=== PATIENT | female | born 1940 | race Caucasian/White ===

== ENCOUNTER 2020-07-05 12:23 | Inpatient (IN) ==
[2020-07-07] MEDS ORDERED: *HR* Glimepiride 4 MG TABLET PO PRN (21:23)
[2020-07-07] MEDS ORDERED: D5% in Water 1,000 ML IVC PRN (21:34)
[2020-07-07] MEDS ORDERED: Dextrose Gel 15 GM/37.5 ML TUBE PO PRN ×2 (21:34)
[2020-07-07] MEDS ORDERED: *HR* Dextrose 50 % in Water (Vial) 50 ML VIAL IVP PRN (21:34)
[2020-07-07] MEDS: Magnesium Oxide 400 MG TABLET PO SCH (23:16)
[2020-07-07] MEDS: Sucralfate 1 GM TABLET PO SCH (23:16)
[2020-07-07] MEDS: QUEtiapine Fumarate 25 MG TABLET PO SCH (23:16)
[2020-07-07] MEDS: Gabapentin 300 MG CAPSULE PO SCH (23:17)
[2020-07-08 05:14] LABS: Basophils # 0.1 K/mcL (0.0-0.2); Basophils % 0.8 %; Eosinophils # 0.2 K/mcL (0.0-0.6); Eosinophils % 2.4 %; Hematocrit 24.3 % (35.3-44.9); Hemoglobin 7.5 g/dL (11.5-15.4); Immature Granulocytes % 0.3 % (0-4); Lymphocytes # 2.2 K/mcL (0.6-4.6); Lymphocytes % 33.4 %; Mean Corpuscular HGB Conc 30.9 g/dL (31.6-35.5); Mean Corpuscular Hemoglobin 28.7 pg (28.0-33.3); Mean Corpuscular Volume 93.1 fL (83.0-100.0); Mean Platelet Volume 10.8 fL (9.4-12.4); Monocytes # 0.8 K/mcL (0.0-1.3); Monocytes % 11.7 %; Neutrophils # 3.4 K/mcL (1.6-8.9); Platelet Count 274 K/mcL (140-400); Red Blood Count 2.61 M/mcL (3.82-4.97); Red Cell Distribution Width 20.8 % (11.5-14.5); Segmented Neutrophils % 51.4 %; White Blood Count 6.6 K/mcL (4.3-11.1)
[2020-07-08] MEDS: Sucralfate 1 GM TABLET PO SCH ×4 (05:50→20:39)
[2020-07-08 05:57] LABS: Alanine Aminotransferase 18 Units/L (7-52); Albumin 2.2 g/dL (3.5-5.7); Albumin/Globulin Ratio 0.8 (1.1-2.2); Alkaline Phosphatase 78 Units/L (34-104); Aspartate Amino Transferase 19 Units/L (13-39); BUN/Creatinine Ratio 15 (6-26); Bilirubin,Total 0.5 mg/dL (0.3-1.0); Blood Urea Nitrogen 10 mg/dL (8-23); Calcium 7.9 mg/dL (8.6-10.3); Carbon Dioxide 40 mEq/L (23-29); Chloride 95 mEq/L (98-107); Globulin 2.6 g/dL (2.4-3.5); Glucose 151 mg/dL (70-105); Osmolality,Calculated 292 (280-300); Potassium 3.1 mEq/L (3.5-5.1); Sodium 140 mEq/L (136-145); Total Protein 4.8 g/dL (6.4-8.9); eGFR For African Americans > 60 (> 60); eGFR For Non-African Americans > 60 (> 60)
[2020-07-08] MEDS: *HR* Pioglitazone 30 MG TABLET PO SCH (08:35)
[2020-07-08] MEDS: Aspirin Enteric Coated 81 MG Tablet PO SCH (08:35)
[2020-07-08] MEDS: Furosemide 40 MG TABLET PO SCH ×2 (08:35→16:15)
[2020-07-08] MEDS: Ascorbic Acid 500 MG TABLET PO SCH (08:36)
[2020-07-08] MEDS: *HR* SitaGLIPtin 100 MG TABLET PO SCH (08:37)
[2020-07-08] MEDS: Cyanocobalamin (B-12) 1,000 MCG TABLET PO SCH (08:37)
[2020-07-08] MEDS: Metoprolol XL (24 HR) Succ 50 MG TAB.ER.24H PO SCH (08:38)
[2020-07-08] MEDS: Loratadine 10 MG TABLET PO SCH (08:38)
[2020-07-08] MEDS: Magnesium Oxide 400 MG TABLET PO SCH ×2 (08:38→20:39)
[2020-07-08] MEDS: Pyridoxine (B-6) 50 MG TABLET PO SCH (08:38)
[2020-07-08] MEDS: Insulin LISPRO 300 UNITS/3 ML VIAL SUBQ SCH ×4 (08:39→20:40)
[2020-07-08] MEDS: Gabapentin 300 MG CAPSULE PO SCH ×3 (08:47→20:39)
[2020-07-08] MEDS: CRANBERRY PO SCH (11:43)
[2020-07-08] MEDS: [UNRECOGNIZED DRUG - OTHER] PO SCH (11:43)
[2020-07-08] MEDS: ASCORBIC ACID PO SCH (11:43)
[2020-07-08] MEDS: (Ubidecarenone [Co Q-10] 200 MG) PO SCH (11:44)
[2020-07-08 18:21] LABS: Bilirubin,Urine Negative (Negative); Blood,Urine Trace-intact (Negative); Clarity,Urine Slightly Cloudy (Clear); Glucose,Urine (UA) Normal (Normal); Ketones,Urine Negative (Negative); Leukocyte Esterase,Urine Trace (Negative); Nitrite,Urine Negative (Negative); Protein,Urine Negative (Neg-Trace); Urobilinogen,Urine Normal (Normal)
[2020-07-08 18:22] LABS: Color,Urine Yellow (Yellow)
[2020-07-08 18:23] LABS: Amorphous Sediment,Urine Few per hpf (None-Few); Bacteria,Urine Few per hpf (None-Few); RBC,Urine 0-3 per hpf (0-3)
[2020-07-08] MEDS: QUEtiapine Fumarate 25 MG TABLET PO SCH (20:39)
[2020-07-08] MEDS: acetaZOLAMIDE 250 MG TABLET PO SCH (20:39)
[2020-07-09] MEDS: Sucralfate 1 GM TABLET PO SCH ×4 (04:55→20:19)
[2020-07-09] MEDS: *HR* Enoxaparin 40 MG/0.4 ML SYRINGE SQ SCH (04:55)
[2020-07-09 05:23] LABS: Hematocrit 25.6 % (35.3-44.9); Hemoglobin 7.9 g/dL (11.5-15.4); Mean Corpuscular HGB Conc 30.9 g/dL (31.6-35.5); Mean Corpuscular Hemoglobin 29.4 pg (28.0-33.3); Mean Corpuscular Volume 95.2 fL (83.0-100.0); Mean Platelet Volume 10.7 fL (9.4-12.4); Platelet Count 273 K/mcL (140-400); Red Blood Count 2.69 M/mcL (3.82-4.97); Red Cell Distribution Width 20.7 % (11.5-14.5); White Blood Count 6.3 K/mcL (4.3-11.1)
[2020-07-09 05:38] LABS: BUN/Creatinine Ratio 12 (6-26); Blood Urea Nitrogen 9 mg/dL (8-23); Calcium 8.2 mg/dL (8.6-10.3); Carbon Dioxide 39 mEq/L (23-29); Chloride 96 mEq/L (98-107); Glucose 104 mg/dL (70-105); Magnesium 1.6 mg/dL (1.6-2.6); Osmolality,Calculated 287 (280-300); Potassium 3.4 mEq/L (3.5-5.1); Sodium 139 mEq/L (136-145); eGFR For African Americans > 60 (> 60); eGFR For Non-African Americans > 60 (> 60)
[2020-07-09] MEDS: Insulin LISPRO 300 UNITS/3 ML VIAL SUBQ SCH ×4 (07:58→20:21)
[2020-07-09] MEDS: *HR* SitaGLIPtin 100 MG TABLET PO SCH (08:10)
[2020-07-09] MEDS: Ascorbic Acid 500 MG TABLET PO SCH (08:33)
[2020-07-09] MEDS: Aspirin Enteric Coated 81 MG Tablet PO SCH (08:33)
[2020-07-09] MEDS: Metoprolol XL (24 HR) Succ 50 MG TAB.ER.24H PO SCH (08:34)
[2020-07-09] MEDS: acetaZOLAMIDE 250 MG TABLET PO SCH ×2 (08:35→20:15)
[2020-07-09] MEDS: Magnesium Oxide 400 MG TABLET PO SCH ×2 (08:35→20:18)
[2020-07-09] MEDS: Pyridoxine (B-6) 50 MG TABLET PO SCH (08:36)
[2020-07-09] MEDS: Cyanocobalamin (B-12) 1,000 MCG TABLET PO SCH (08:36)
[2020-07-09] MEDS: Loratadine 10 MG TABLET PO SCH (08:38)
[2020-07-09] MEDS: *HR* Pioglitazone 30 MG TABLET PO SCH (08:39)
[2020-07-09] MEDS: Furosemide 40 MG TABLET PO SCH ×2 (08:39→17:06)
[2020-07-09] MEDS: Gabapentin 300 MG CAPSULE PO SCH ×3 (08:39→20:18)
[2020-07-09] MEDS: ASCORBIC ACID PO SCH (08:56)
[2020-07-09] MEDS: (Ubidecarenone [Co Q-10] 200 MG) PO SCH (08:56)
[2020-07-09] MEDS: [UNRECOGNIZED DRUG - OTHER] PO SCH (08:56)
[2020-07-09] MEDS: CRANBERRY PO SCH (08:56)
[2020-07-09] MEDS: QUEtiapine Fumarate 25 MG TABLET PO SCH (20:17)
[2020-07-10] MEDS: Sucralfate 1 GM TABLET PO SCH ×4 (05:51→20:11)
[2020-07-10] MEDS: *HR* Enoxaparin 40 MG/0.4 ML SYRINGE SQ SCH (05:52)
[2020-07-10 06:22] LABS: Hematocrit 25.5 % (35.3-44.9); Hemoglobin 7.8 g/dL (11.5-15.4); Mean Corpuscular HGB Conc 30.6 g/dL (31.6-35.5); Mean Corpuscular Hemoglobin 28.9 pg (28.0-33.3); Mean Corpuscular Volume 94.4 fL (83.0-100.0); Mean Platelet Volume 11.2 fL (9.4-12.4); Platelet Count 266 K/mcL (140-400); Red Cell Distribution Width 20.7 % (11.5-14.5); White Blood Count 6.8 K/mcL (4.3-11.1)
[2020-07-10 06:30] LABS: BUN/Creatinine Ratio 12 (6-26); Blood Urea Nitrogen 11 mg/dL (8-23); Calcium 8.3 mg/dL (8.6-10.3); Carbon Dioxide 36 mEq/L (23-29); Chloride 95 mEq/L (98-107); Glucose 114 mg/dL (70-105); Magnesium 1.5 mg/dL (1.6-2.6); Osmolality,Calculated 282 (280-300); Potassium 3.2 mEq/L (3.5-5.1); Sodium 136 mEq/L (136-145); eGFR For African Americans > 60 (> 60); eGFR For Non-African Americans 57 (> 60)
[2020-07-10] MEDS: Insulin LISPRO 300 UNITS/3 ML VIAL SUBQ SCH ×4 (07:32→22:57)
[2020-07-10] MEDS: Magnesium Oxide 400 MG TABLET PO SCH ×2 (08:15→20:10)
[2020-07-10] MEDS: Aspirin Enteric Coated 81 MG Tablet PO SCH (08:15)
[2020-07-10] MEDS: *HR* SitaGLIPtin 100 MG TABLET PO SCH (08:15)
[2020-07-10] MEDS: Ascorbic Acid 500 MG TABLET PO SCH (08:15)
[2020-07-10] MEDS: *HR* Pioglitazone 30 MG TABLET PO SCH (08:15)
[2020-07-10] MEDS: acetaZOLAMIDE 250 MG TABLET PO SCH ×2 (08:16→20:11)
[2020-07-10] MEDS: Cyanocobalamin (B-12) 1,000 MCG TABLET PO SCH (08:16)
[2020-07-10] MEDS: Furosemide 40 MG TABLET PO SCH ×2 (08:16→16:05)
[2020-07-10] MEDS: Metoprolol XL (24 HR) Succ 50 MG TAB.ER.24H PO SCH (08:16)
[2020-07-10] MEDS: Loratadine 10 MG TABLET PO SCH (08:16)
[2020-07-10] MEDS: Gabapentin 300 MG CAPSULE PO SCH ×3 (08:16→20:09)
[2020-07-10] MEDS: Pyridoxine (B-6) 50 MG TABLET PO SCH (08:16)
[2020-07-10] MEDS: (Ubidecarenone [Co Q-10] 200 MG) PO SCH (08:17)
[2020-07-10] MEDS: ASCORBIC ACID PO SCH (08:17)
[2020-07-10] MEDS: CRANBERRY PO SCH (08:17)
[2020-07-10] MEDS: [UNRECOGNIZED DRUG - OTHER] PO SCH (08:17)
[2020-07-10] MEDS: QUEtiapine Fumarate 25 MG TABLET PO SCH (20:10)
[2020-07-11] MEDS: Sucralfate 1 GM TABLET PO SCH ×4 (04:27→20:07)
[2020-07-11] MEDS: *HR* Enoxaparin 40 MG/0.4 ML SYRINGE SQ SCH (04:28)
[2020-07-11] MEDS: Insulin LISPRO 300 UNITS/3 ML VIAL SUBQ SCH ×4 (08:09→20:12)
[2020-07-11] MEDS: acetaZOLAMIDE 250 MG TABLET PO SCH ×2 (08:27→20:07)
[2020-07-11] MEDS: Aspirin Enteric Coated 81 MG Tablet PO SCH (08:27)
[2020-07-11] MEDS: Cyanocobalamin (B-12) 1,000 MCG TABLET PO SCH (08:27)
[2020-07-11] MEDS: *HR* Pioglitazone 30 MG TABLET PO SCH (08:27)
[2020-07-11] MEDS: Furosemide 40 MG TABLET PO SCH ×2 (08:28→16:50)
[2020-07-11] MEDS: Metoprolol XL (24 HR) Succ 50 MG TAB.ER.24H PO SCH (08:28)
[2020-07-11] MEDS: *HR* SitaGLIPtin 100 MG TABLET PO SCH (08:28)
[2020-07-11] MEDS: Loratadine 10 MG TABLET PO SCH (08:28)
[2020-07-11] MEDS: ASCORBIC ACID PO SCH (08:28)
[2020-07-11] MEDS: Pyridoxine (B-6) 50 MG TABLET PO SCH (08:28)
[2020-07-11] MEDS: Gabapentin 300 MG CAPSULE PO SCH ×3 (08:28→20:06)
[2020-07-11] MEDS: Ascorbic Acid 500 MG TABLET PO SCH (08:28)
[2020-07-11] MEDS: Magnesium Oxide 400 MG TABLET PO SCH ×2 (08:28→20:07)
[2020-07-11] MEDS: CRANBERRY PO SCH (08:28)
[2020-07-11] MEDS: (Ubidecarenone [Co Q-10] 200 MG) PO SCH (08:29)
[2020-07-11] MEDS: [UNRECOGNIZED DRUG - OTHER] PO SCH (08:29)
[2020-07-11 10:43] LABS: BUN/Creatinine Ratio 12 (6-26); Blood Urea Nitrogen 12 mg/dL (8-23); Calcium 8.6 mg/dL (8.6-10.3); Carbon Dioxide 31 mEq/L (23-29); Chloride 97 mEq/L (98-107); Glucose 240 mg/dL (70-105); Osmolality,Calculated 288 (280-300); Potassium 3.8 mEq/L (3.5-5.1); Sodium 135 mEq/L (136-145); eGFR For African Americans > 60 (> 60); eGFR For Non-African Americans 53 (> 60)
[2020-07-11] MEDS: levoFLOXacin 500 MG TABLET PO SCH (12:30)
[2020-07-11] MEDS: QUEtiapine Fumarate 25 MG TABLET PO SCH (20:07)
[2020-07-12 05:23] LABS: Hematocrit 24.9 % (35.3-44.9); Hemoglobin 7.6 g/dL (11.5-15.4); Mean Corpuscular HGB Conc 30.5 g/dL (31.6-35.5); Mean Corpuscular Hemoglobin 29.1 pg (28.0-33.3); Mean Corpuscular Volume 95.4 fL (83.0-100.0); Platelet Count 251 K/mcL (140-400); Red Blood Count 2.61 M/mcL (3.82-4.97); White Blood Count 7.2 K/mcL (4.3-11.1)
[2020-07-12] MEDS: Sucralfate 1 GM TABLET PO SCH ×4 (05:23→21:10)
[2020-07-12] MEDS: *HR* Enoxaparin 40 MG/0.4 ML SYRINGE SQ SCH (05:23)
[2020-07-12 05:36] LABS: BUN/Creatinine Ratio 15 (6-26); Blood Urea Nitrogen 14 mg/dL (8-23); Calcium 8.1 mg/dL (8.6-10.3); Carbon Dioxide 32 mEq/L (23-29); Chloride 100 mEq/L (98-107); Glucose 122 mg/dL (70-105); Magnesium 1.4 mg/dL (1.6-2.6); Osmolality,Calculated 286 (280-300); Potassium 3.4 mEq/L (3.5-5.1); Sodium 137 mEq/L (136-145); eGFR For African Americans > 60 (> 60); eGFR For Non-African Americans 58 (> 60)
[2020-07-12] MEDS: Magnesium Oxide 400 MG TABLET PO SCH ×2 (09:17→21:09)
[2020-07-12] MEDS: Pyridoxine (B-6) 50 MG TABLET PO SCH (09:18)
[2020-07-12] MEDS: Aspirin Enteric Coated 81 MG Tablet PO SCH (09:18)
[2020-07-12] MEDS: Cyanocobalamin (B-12) 1,000 MCG TABLET PO SCH (09:18)
[2020-07-12] MEDS: levoFLOXacin 500 MG TABLET PO SCH (09:18)
[2020-07-12] MEDS: Gabapentin 300 MG CAPSULE PO SCH ×3 (09:18→21:09)
[2020-07-12] MEDS: Furosemide 40 MG TABLET PO SCH ×2 (09:18→17:34)
[2020-07-12] MEDS: *HR* SitaGLIPtin 100 MG TABLET PO SCH (09:19)
[2020-07-12] MEDS: Ascorbic Acid 500 MG TABLET PO SCH (09:19)
[2020-07-12] MEDS: *HR* Pioglitazone 30 MG TABLET PO SCH (09:19)
[2020-07-12] MEDS: Loratadine 10 MG TABLET PO SCH (09:19)
[2020-07-12] MEDS: Metoprolol XL (24 HR) Succ 50 MG TAB.ER.24H PO SCH (09:19)
[2020-07-12] MEDS: Insulin LISPRO 300 UNITS/3 ML VIAL SUBQ SCH ×4 (09:29→21:11)
[2020-07-12] MEDS: QUEtiapine Fumarate 25 MG TABLET PO SCH (21:10)
[2020-07-13 04:52] LABS: Hemoglobin 7.8 g/dL (11.5-15.4); Mean Corpuscular HGB Conc 31.2 g/dL (31.6-35.5); Mean Corpuscular Volume 92.9 fL (83.0-100.0); Platelet Count 260 K/mcL (140-400); Red Blood Count 2.69 M/mcL (3.82-4.97); Red Cell Distribution Width 21.4 % (11.5-14.5); White Blood Count 7.1 K/mcL (4.3-11.1)
[2020-07-13] MEDS: *HR* Enoxaparin 40 MG/0.4 ML SYRINGE SQ SCH (04:53)
[2020-07-13] MEDS: Sucralfate 1 GM TABLET PO SCH ×4 (04:53→19:40)
[2020-07-13 05:07] LABS: BUN/Creatinine Ratio 12 (6-26); Blood Urea Nitrogen 13 mg/dL (8-23); Calcium 8.1 mg/dL (8.6-10.3); Carbon Dioxide 30 mEq/L (23-29); Chloride 102 mEq/L (98-107); Glucose 152 mg/dL (70-105); Magnesium 1.6 mg/dL (1.6-2.6); Osmolality,Calculated 291 (280-300); Potassium 3.7 mEq/L (3.5-5.1); Sodium 139 mEq/L (136-145); eGFR For African Americans > 60 (> 60); eGFR For Non-African Americans 51 (> 60)
[2020-07-13] MEDS: Insulin LISPRO 300 UNITS/3 ML VIAL SUBQ SCH ×4 (08:15→20:43)
[2020-07-13] MEDS: *HR* Pioglitazone 30 MG TABLET PO SCH (08:17)
[2020-07-13] MEDS: Furosemide 40 MG TABLET PO SCH ×2 (08:17→16:59)
[2020-07-13] MEDS: Pyridoxine (B-6) 50 MG TABLET PO SCH (08:17)
[2020-07-13] MEDS: Aspirin Enteric Coated 81 MG Tablet PO SCH (08:17)
[2020-07-13] MEDS: Loratadine 10 MG TABLET PO SCH (08:17)
[2020-07-13] MEDS: levoFLOXacin 500 MG TABLET PO SCH (08:17)
[2020-07-13] MEDS: Ascorbic Acid 500 MG TABLET PO SCH (08:18)
[2020-07-13] MEDS: Gabapentin 300 MG CAPSULE PO SCH ×3 (08:18→19:38)
[2020-07-13] MEDS: Cyanocobalamin (B-12) 1,000 MCG TABLET PO SCH (08:18)
[2020-07-13] MEDS: Magnesium Oxide 400 MG TABLET PO SCH ×2 (08:18→19:39)
[2020-07-13] MEDS: Metoprolol XL (24 HR) Succ 50 MG TAB.ER.24H PO SCH (08:18)
[2020-07-13] MEDS: *HR* SitaGLIPtin 100 MG TABLET PO SCH (08:18)
[2020-07-13] MEDS: Spironolactone 25 MG TABLET PO SCH (12:25)
[2020-07-13] MEDS: QUEtiapine Fumarate 25 MG TABLET PO SCH (19:39)
[2020-07-14] MEDS: Sucralfate 1 GM TABLET PO SCH ×4 (04:57→19:37)
[2020-07-14] MEDS: *HR* Enoxaparin 40 MG/0.4 ML SYRINGE SQ SCH (04:57)
[2020-07-14] MEDS: Insulin LISPRO 300 UNITS/3 ML VIAL SUBQ SCH ×4 (07:54→22:53)
[2020-07-14] MEDS: Metoprolol XL (24 HR) Succ 50 MG TAB.ER.24H PO SCH (08:04)
[2020-07-14] MEDS: Pyridoxine (B-6) 50 MG TABLET PO SCH (08:04)
[2020-07-14] MEDS: Aspirin Enteric Coated 81 MG Tablet PO SCH (08:04)
[2020-07-14] MEDS: Ascorbic Acid 500 MG TABLET PO SCH (08:04)
[2020-07-14] MEDS: *HR* SitaGLIPtin 100 MG TABLET PO SCH (08:04)
[2020-07-14] MEDS: Furosemide 40 MG TABLET PO SCH ×2 (08:04→16:53)
[2020-07-14] MEDS: Spironolactone 25 MG TABLET PO SCH (08:04)
[2020-07-14] MEDS: *HR* Pioglitazone 30 MG TABLET PO SCH (08:04)
[2020-07-14] MEDS: Magnesium Oxide 400 MG TABLET PO SCH ×2 (08:05→19:33)
[2020-07-14] MEDS: levoFLOXacin 500 MG TABLET PO SCH (08:05)
[2020-07-14] MEDS: Cyanocobalamin (B-12) 1,000 MCG TABLET PO SCH (08:05)
[2020-07-14] MEDS: Loratadine 10 MG TABLET PO SCH (08:05)
[2020-07-14] MEDS: Gabapentin 300 MG CAPSULE PO SCH ×3 (08:05→19:33)
[2020-07-14] MEDS ORDERED: Ondansetron ODT 4 MG TAB.RAPDIS SL PRN (10:34)
[2020-07-14] MEDS ORDERED: Mag Hydrox/Al Hydrox/Simeth 30 ML UDC PO PRN (10:45)
[2020-07-14] MEDS: QUEtiapine Fumarate 25 MG TABLET PO SCH (19:32)
[2020-07-15] MEDS: *HR* Enoxaparin 40 MG/0.4 ML SYRINGE SQ SCH (04:46)
[2020-07-15 05:01] LABS: Basophils # 0.1 K/mcL (0.0-0.2); Basophils % 0.5 %; Eosinophils # 0.2 K/mcL (0.0-0.6); Eosinophils % 1.9 %; Hematocrit 27.3 % (35.3-44.9); Hemoglobin 8.6 g/dL (11.5-15.4); Immature Granulocytes % 0.5 % (0-4); Lymphocytes # 3.4 K/mcL (0.6-4.6); Lymphocytes % 37.4 %; Mean Corpuscular HGB Conc 31.5 g/dL (31.6-35.5); Mean Corpuscular Hemoglobin 29.2 pg (28.0-33.3); Mean Corpuscular Volume 92.5 fL (83.0-100.0); Mean Platelet Volume 10.3 fL (9.4-12.4); Monocytes # 0.8 K/mcL (0.0-1.3); Monocytes % 9.1 %; Neutrophils # 4.6 K/mcL (1.6-8.9); Platelet Count 259 K/mcL (140-400); Red Blood Count 2.95 M/mcL (3.82-4.97); Red Cell Distribution Width 22.2 % (11.5-14.5); Segmented Neutrophils % 50.6 %; White Blood Count 9.2 K/mcL (4.3-11.1)
[2020-07-15 05:19] LABS: Alanine Aminotransferase 14 Units/L (7-52); Albumin 2.2 g/dL (3.5-5.7); Albumin/Globulin Ratio 0.8 (1.1-2.2); Alkaline Phosphatase 100 Units/L (34-104); Aspartate Amino Transferase 19 Units/L (13-39); BUN/Creatinine Ratio 13 (6-26); Bilirubin,Total 0.4 mg/dL (0.3-1.0); Blood Urea Nitrogen 13 mg/dL (8-23); Calcium 8.4 mg/dL (8.6-10.3); Carbon Dioxide 30 mEq/L (23-29); Chloride 100 mEq/L (98-107); Globulin 2.9 g/dL (2.4-3.5); Glucose 122 mg/dL (70-105); Magnesium 1.3 mg/dL (1.6-2.6); Osmolality,Calculated 287 (280-300); Potassium 3.7 mEq/L (3.5-5.1); Sodium 138 mEq/L (136-145); Total Protein 5.1 g/dL (6.4-8.9); eGFR For African Americans > 60 (> 60); eGFR For Non-African Americans 52 (> 60)
[2020-07-15] MEDS: Insulin LISPRO 300 UNITS/3 ML VIAL SUBQ SCH ×3 (07:55→19:12)
[2020-07-15] MEDS: Ascorbic Acid 500 MG TABLET PO SCH (08:15)
[2020-07-15] MEDS: Sucralfate 1 GM TABLET PO SCH ×4 (08:15→19:48)
[2020-07-15] MEDS: Furosemide 40 MG TABLET PO SCH (08:15)
[2020-07-15] MEDS: Metoprolol XL (24 HR) Succ 50 MG TAB.ER.24H PO SCH (08:15)
[2020-07-15] MEDS: levoFLOXacin 500 MG TABLET PO SCH (08:15)
[2020-07-15] MEDS: Spironolactone 25 MG TABLET PO SCH (08:16)
[2020-07-15] MEDS: *HR* Pioglitazone 30 MG TABLET PO SCH (08:16)
[2020-07-15] MEDS: Loratadine 10 MG TABLET PO SCH (08:16)
[2020-07-15] MEDS: Magnesium Oxide 400 MG TABLET PO SCH ×2 (08:16→19:44)
[2020-07-15] MEDS: Aspirin Enteric Coated 81 MG Tablet PO SCH (08:16)
[2020-07-15] MEDS: Pyridoxine (B-6) 50 MG TABLET PO SCH (08:16)
[2020-07-15] MEDS: Gabapentin 300 MG CAPSULE PO SCH ×3 (08:17→19:45)
[2020-07-15] MEDS: *HR* SitaGLIPtin 100 MG TABLET PO SCH (08:17)
[2020-07-15] MEDS: Cyanocobalamin (B-12) 1,000 MCG TABLET PO SCH (08:17)
[2020-07-15] MEDS: QUEtiapine Fumarate 25 MG TABLET PO SCH (19:44)
[2020-07-16] MEDS: Insulin LISPRO 300 UNITS/3 ML VIAL SUBQ SCH ×5 (00:17→20:56)
[2020-07-16 05:07] LABS: Basophils % 0.4 %; Eosinophils # 0.1 K/mcL (0.0-0.6); Eosinophils % 1.5 %; Hematocrit 26.3 % (35.3-44.9); Hemoglobin 8.3 g/dL (11.5-15.4); Immature Granulocytes % 0.5 % (0-4); Lymphocytes # 2.9 K/mcL (0.6-4.6); Lymphocytes % 31.3 %; Mean Corpuscular HGB Conc 31.6 g/dL (31.6-35.5); Mean Corpuscular Hemoglobin 28.9 pg (28.0-33.3); Mean Corpuscular Volume 91.6 fL (83.0-100.0); Mean Platelet Volume 10.6 fL (9.4-12.4); Monocytes # 0.7 K/mcL (0.0-1.3); Monocytes % 7.9 %; Neutrophils # 5.5 K/mcL (1.6-8.9); Platelet Count 245 K/mcL (140-400); Red Blood Count 2.87 M/mcL (3.82-4.97); Red Cell Distribution Width 22.3 % (11.5-14.5); Segmented Neutrophils % 58.4 %; White Blood Count 9.4 K/mcL (4.3-11.1)
[2020-07-16] MEDS: Sucralfate 1 GM TABLET PO SCH ×4 (05:15→20:55)
[2020-07-16] MEDS: *HR* Enoxaparin 40 MG/0.4 ML SYRINGE SQ SCH (05:15)
[2020-07-16 05:23] LABS: BUN/Creatinine Ratio 13 (6-26); Blood Urea Nitrogen 13 mg/dL (8-23); Calcium 8.5 mg/dL (8.6-10.3); Carbon Dioxide 30 mEq/L (23-29); Chloride 101 mEq/L (98-107); Glucose 122 mg/dL (70-105); Magnesium 1.6 mg/dL (1.6-2.6); Osmolality,Calculated 285 (280-300); Potassium 3.8 mEq/L (3.5-5.1); Sodium 137 mEq/L (136-145); eGFR For African Americans > 60 (> 60); eGFR For Non-African Americans 55 (> 60)
[2020-07-16] MEDS: Cyanocobalamin (B-12) 1,000 MCG TABLET PO SCH (08:05)
[2020-07-16] MEDS: Aspirin Enteric Coated 81 MG Tablet PO SCH (08:05)
[2020-07-16] MEDS: Ascorbic Acid 500 MG TABLET PO SCH (08:06)
[2020-07-16] MEDS: Furosemide 40 MG TABLET PO SCH (08:06)
[2020-07-16] MEDS: Spironolactone 25 MG TABLET PO SCH (08:06)
[2020-07-16] MEDS: Gabapentin 300 MG CAPSULE PO SCH ×3 (08:07→20:54)
[2020-07-16] MEDS: *HR* Pioglitazone 30 MG TABLET PO SCH (08:07)
[2020-07-16] MEDS: Pyridoxine (B-6) 50 MG TABLET PO SCH (08:08)
[2020-07-16] MEDS: Metoprolol XL (24 HR) Succ 50 MG TAB.ER.24H PO SCH (08:09)
[2020-07-16] MEDS: Loratadine 10 MG TABLET PO SCH (08:09)
[2020-07-16] MEDS: Magnesium Oxide 400 MG TABLET PO SCH ×2 (08:16→20:54)
[2020-07-16] MEDS: *HR* SitaGLIPtin 100 MG TABLET PO SCH (08:17)
[2020-07-16] MEDS: levoFLOXacin 500 MG TABLET PO SCH (08:23)
[2020-07-16] MEDS: QUEtiapine Fumarate 25 MG TABLET PO SCH (20:53)
[2020-07-17] MEDS: Sucralfate 1 GM TABLET PO SCH (05:10)
[2020-07-17] MEDS: *HR* Enoxaparin 40 MG/0.4 ML SYRINGE SQ SCH (05:10)
[2020-07-17] MEDS: Insulin LISPRO 300 UNITS/3 ML VIAL SUBQ SCH (07:51)
[2020-07-17 08:22] VITALS: BP 154/70
[2020-07-17] MEDS: Ascorbic Acid 500 MG TABLET PO SCH (08:26)
[2020-07-17] MEDS: Aspirin Enteric Coated 81 MG Tablet PO SCH (08:27)
[2020-07-17] MEDS: *HR* SitaGLIPtin 100 MG TABLET PO SCH (08:27)
[2020-07-17] MEDS: Metoprolol XL (24 HR) Succ 50 MG TAB.ER.24H PO SCH (08:30)
[2020-07-17] MEDS: Furosemide 40 MG TABLET PO SCH (08:30)
[2020-07-17] MEDS: Loratadine 10 MG TABLET PO SCH (08:31)
[2020-07-17] MEDS: levoFLOXacin 500 MG TABLET PO SCH (08:31)
[2020-07-17] MEDS: *HR* Pioglitazone 30 MG TABLET PO SCH (08:31)
[2020-07-17] MEDS: Pyridoxine (B-6) 50 MG TABLET PO SCH (08:31)
[2020-07-17] MEDS: Gabapentin 300 MG CAPSULE PO SCH (08:32)
[2020-07-17] MEDS: Cyanocobalamin (B-12) 1,000 MCG TABLET PO SCH (08:32)
[2020-07-17] MEDS: Magnesium Oxide 400 MG TABLET PO SCH (08:32)
[2020-07-17] MEDS: Spironolactone 25 MG TABLET PO SCH (08:32)
== END 2020-07-17 12:05 | disposition home health service (06) | DRG 280 ==
LOC: INPGRE 07-07 18:56
PROVIDERS: ADMIT Family Medicine; ATTEND Family Medicine

== ENCOUNTER 2021-11-21 16:07 | Inpatient (IN) ==
[2021-11-21] MEDS ORDERED: Dextrose 4 GM Chewable Tablets PO PRN ×2 (16:23)
[2021-11-21] MEDS ORDERED: D5% in Water 1,000 ML IVC PRN (16:23)
[2021-11-21] MEDS ORDERED: *HR* Dextrose 50 % in Water (Syg) 50 ML SYRINGE IVP PRN (16:23)
[2021-11-21] MEDS: Sucralfate 1 GM TABLET PO SCH ×2 (18:23→20:54)
[2021-11-21] MEDS: Insulin LISPRO 300 UNITS/3 ML VIAL SUBQ SCH ×2 (18:23→21:22)
[2021-11-21] MEDS: Gabapentin 300 MG CAPSULE PO SCH (20:55)
[2021-11-21] MEDS ORDERED: Insulin DETEMIR 100 UNIT/ML per UNIT SUBQ ONE (21:00)
[2021-11-22 03:41] LABS: Bilirubin,Urine Negative (Negative); Blood,Urine Trace-intact (Negative); Clarity,Urine Cloudy (Clear); Color,Urine Yellow (Yellow); Glucose,Urine (UA) Normal (Normal); Ketones,Urine Negative (Negative); Leukocyte Esterase,Urine Large (Negative); Nitrite,Urine Negative (Negative); PH,Urine >=9.0 pH Units (5.0-8.0); Protein,Urine 100 mg/dL (Neg-Trace); Urobilinogen,Urine Normal (Normal)
[2021-11-22 03:43] LABS: Bacteria,Urine Many per hpf (None-Few); Mucus,Urine Many per lpf (None-Few); Squamous Epithelial Cell,Urine Few per hpf (None-Few); WBC,Urine TNTC per hpf (0-3)
[2021-11-22] MEDS: Sucralfate 1 GM TABLET PO SCH ×4 (05:59→21:01)
[2021-11-22 06:25] LABS: Basophils % 0.6 %; Eosinophils # 0.1 K/mcL (0.0-0.6); Eosinophils % 1.5 %; Hematocrit 25.4 % (35.3-44.9); Hemoglobin 7.9 g/dL (11.5-15.4); Immature Granulocytes % 0.3 % (0-4); Lymphocytes # 2.2 K/mcL (0.6-4.6); Mean Corpuscular HGB Conc 31.1 g/dL (31.6-35.5); Mean Corpuscular Hemoglobin 27.7 pg (28.0-33.3); Mean Corpuscular Volume 89.1 fL (83.0-100.0); Mean Platelet Volume 10.8 fL (9.4-12.4); Monocytes # 0.7 K/mcL (0.0-1.3); Neutrophils # 3.6 K/mcL (1.6-8.9); Platelet Count 192 K/mcL (140-400); Red Blood Count 2.85 M/mcL (3.82-4.97); Red Cell Distribution Width 18.6 % (11.5-14.5); Segmented Neutrophils % 53.6 %; White Blood Count 6.8 K/mcL (4.3-11.1)
[2021-11-22 06:55] LABS: Calcium 8.3 mg/dL (8.6-10.3); Potassium 3.7 mEq/L (3.5-5.1)
[2021-11-22] MEDS: Insulin LISPRO 300 UNITS/3 ML VIAL SUBQ SCH ×4 (07:20→20:03)
[2021-11-22] MEDS: CRANBERRY FRUIT EXTRACT 200 MG PO SCH (07:58)
[2021-11-22] MEDS: Gabapentin 300 MG CAPSULE PO SCH ×3 (08:00→21:00)
[2021-11-22] MEDS: Furosemide 40 MG TABLET PO SCH ×2 (08:00→15:36)
[2021-11-22] MEDS: Pyridoxine (B-6) 50 MG TABLET PO SCH (08:04)
[2021-11-22] MEDS: Magnesium Oxide 400 MG TABLET PO SCH (08:04)
[2021-11-22] MEDS: Cyanocobalamin (B-12) 1,000 MCG TABLET PO SCH (08:04)
[2021-11-22] MEDS: PARoxetine 10 MG TABLET PO SCH (08:04)
[2021-11-22] MEDS: Metoprolol XL (24 HR) Succ 25 MG TAB.ER.24H PO SCH (08:05)
[2021-11-22] MEDS: *HR* Amiodarone 200 MG TABLET PO SCH (08:05)
[2021-11-22] MEDS: Aspirin Enteric Coated 81 MG Tablet PO SCH (08:05)
[2021-11-22] MEDS: amLODIPine 5 MG TABLET PO SCH (08:05)
[2021-11-22] MEDS: Loratadine 10 MG TABLET PO SCH (08:05)
[2021-11-22] MEDS ORDERED: ZINC 50 MG PO SCH (09:00)
[2021-11-22] MEDS: Zinc Sulfate 220 MG CAPSULE PO SCH (13:28)
[2021-11-22] MEDS: cephALEXin 500 MG CAPSULE PO SCH ×2 (15:36→21:02)
[2021-11-22] MEDS: Insulin DETEMIR 100 UNIT/ML X5UNITS SUBQ SCH (21:02)
[2021-11-23] MEDS: Cyanocobalamin (B-12) 1,000 MCG TABLET PO SCH (08:43)
[2021-11-23] MEDS: Aspirin Enteric Coated 81 MG Tablet PO SCH (08:43)
[2021-11-23] MEDS: Pyridoxine (B-6) 50 MG TABLET PO SCH (08:43)
[2021-11-23] MEDS: amLODIPine 5 MG TABLET PO SCH (08:43)
[2021-11-23] MEDS: Loratadine 10 MG TABLET PO SCH (08:43)
[2021-11-23] MEDS: Sucralfate 1 GM TABLET PO SCH ×4 (08:43→22:09)
[2021-11-23] MEDS: Zinc Sulfate 220 MG CAPSULE PO SCH (08:43)
[2021-11-23] MEDS: CRANBERRY FRUIT EXTRACT 200 MG PO SCH (08:44)
[2021-11-23] MEDS: Metoprolol XL (24 HR) Succ 25 MG TAB.ER.24H PO SCH (08:44)
[2021-11-23] MEDS: PARoxetine 10 MG TABLET PO SCH (08:44)
[2021-11-23] MEDS: Gabapentin 300 MG CAPSULE PO SCH ×3 (08:45→22:09)
[2021-11-23] MEDS: Magnesium Oxide 400 MG TABLET PO SCH (08:45)
[2021-11-23] MEDS: Furosemide 40 MG TABLET PO SCH ×2 (08:45→14:49)
[2021-11-23] MEDS: cephALEXin 500 MG CAPSULE PO SCH ×2 (08:45→22:10)
[2021-11-23] MEDS: *HR* Amiodarone 200 MG TABLET PO SCH (08:47)
[2021-11-23] MEDS: Insulin LISPRO 300 UNITS/3 ML VIAL SUBQ SCH ×4 (08:49→22:11)
[2021-11-23] MEDS: Insulin DETEMIR 100 UNIT/ML X5UNITS SUBQ SCH (22:10)
[2021-11-23] MEDS: Melatonin 3 MG TABLET PO PRN (22:10)
[2021-11-24 05:16] LABS: Basophils % 0.7 %; Eosinophils # 0.2 K/mcL (0.0-0.6); Hematocrit 27.3 % (35.3-44.9); Hemoglobin 8.5 g/dL (11.5-15.4); Immature Granulocytes % 0.3 % (0-4); Lymphocytes % 35.3 %; Mean Corpuscular HGB Conc 31.1 g/dL (31.6-35.5); Mean Corpuscular Hemoglobin 28.5 pg (28.0-33.3); Mean Corpuscular Volume 91.6 fL (83.0-100.0); Mean Platelet Volume 10.8 fL (9.4-12.4); Monocytes # 0.7 K/mcL (0.0-1.3); Monocytes % 11.7 %; Neutrophils # 2.8 K/mcL (1.6-8.9); Platelet Count 198 K/mcL (140-400); Red Blood Count 2.98 M/mcL (3.82-4.97); Red Cell Distribution Width 20.5 % (11.5-14.5); White Blood Count 5.7 K/mcL (4.3-11.1)
[2021-11-24 05:31] LABS: Alanine Aminotransferase 15 Units/L (7-52); Albumin 2.7 g/dL (3.5-5.7); Albumin/Globulin Ratio 0.8 (1.1-2.2); Alkaline Phosphatase 129 Units/L (34-104); Aspartate Amino Transferase 23 Units/L (13-39); BUN/Creatinine Ratio 29 (6-26); Blood Urea Nitrogen 30 mg/dL (8-23); Calcium 8.3 mg/dL (8.6-10.3); Carbon Dioxide 35 mEq/L (23-29); Chloride 100 mEq/L (98-107); Globulin 3.4 g/dL (2.4-3.5); Glucose 122 mg/dL (70-105); Magnesium 1.5 mg/dL (1.6-2.6); Osmolality,Calculated 297 (280-300); Sodium 140 mEq/L (136-145); Total Protein 6.1 g/dL (6.4-8.9); eGFR For African Americans > 60 (> 60); eGFR For Non-African Americans 50 (> 60)
[2021-11-24] MEDS: Aspirin Enteric Coated 81 MG Tablet PO SCH (09:24)
[2021-11-24] MEDS: Loratadine 10 MG TABLET PO SCH (09:24)
[2021-11-24] MEDS: Insulin LISPRO 300 UNITS/3 ML VIAL SUBQ SCH ×4 (09:24→21:06)
[2021-11-24] MEDS: Metoprolol XL (24 HR) Succ 25 MG TAB.ER.24H PO SCH (09:24)
[2021-11-24] MEDS: Sucralfate 1 GM TABLET PO SCH ×4 (09:25→21:01)
[2021-11-24] MEDS: Cyanocobalamin (B-12) 1,000 MCG TABLET PO SCH (09:25)
[2021-11-24] MEDS: amLODIPine 5 MG TABLET PO SCH (09:25)
[2021-11-24] MEDS: PARoxetine 10 MG TABLET PO SCH (09:25)
[2021-11-24] MEDS: Gabapentin 300 MG CAPSULE PO SCH ×3 (09:25→21:01)
[2021-11-24] MEDS: Zinc Sulfate 220 MG CAPSULE PO SCH (09:25)
[2021-11-24] MEDS: Furosemide 40 MG TABLET PO SCH ×2 (09:26→16:45)
[2021-11-24] MEDS: cephALEXin 500 MG CAPSULE PO SCH ×2 (09:26→21:01)
[2021-11-24] MEDS: Pyridoxine (B-6) 50 MG TABLET PO SCH (09:26)
[2021-11-24] MEDS: Magnesium Oxide 400 MG TABLET PO SCH (09:36)
[2021-11-24] MEDS: CRANBERRY FRUIT EXTRACT 200 MG PO SCH (09:38)
[2021-11-24] MEDS: *HR* Amiodarone 200 MG TABLET PO SCH (10:39)
[2021-11-24] MEDS: *HR* HYDROcodone/Acet 5/325 mg TABLET PO PRN (18:49)
[2021-11-24] MEDS: Insulin DETEMIR 100 UNIT/ML X5UNITS SUBQ SCH (21:02)
[2021-11-25] MEDS: *HR* HYDROcodone/Acet 5/325 mg TABLET PO PRN ×3 (05:35→20:10)
[2021-11-25] MEDS: Insulin LISPRO 300 UNITS/3 ML VIAL SUBQ SCH ×4 (09:51→20:11)
[2021-11-25] MEDS: Aspirin Enteric Coated 81 MG Tablet PO SCH (13:16)
[2021-11-25] MEDS: Gabapentin 300 MG CAPSULE PO SCH ×3 (13:16→20:10)
[2021-11-25] MEDS: *HR* Amiodarone 200 MG TABLET PO SCH (13:17)
[2021-11-25] MEDS: PARoxetine 10 MG TABLET PO SCH (13:17)
[2021-11-25] MEDS: Cyanocobalamin (B-12) 1,000 MCG TABLET PO SCH (13:17)
[2021-11-25] MEDS: Loratadine 10 MG TABLET PO SCH (13:17)
[2021-11-25] MEDS: Pyridoxine (B-6) 50 MG TABLET PO SCH (13:17)
[2021-11-25] MEDS: Magnesium Oxide 400 MG TABLET PO SCH (13:17)
[2021-11-25] MEDS: Sucralfate 1 GM TABLET PO SCH ×4 (13:18→20:10)
[2021-11-25] MEDS: Metoprolol XL (24 HR) Succ 25 MG TAB.ER.24H PO SCH (13:19)
[2021-11-25] MEDS: amLODIPine 5 MG TABLET PO SCH (13:19)
[2021-11-25] MEDS: cephALEXin 500 MG CAPSULE PO SCH ×2 (13:30→20:10)
[2021-11-25] MEDS: Zinc Sulfate 220 MG CAPSULE PO SCH (15:39)
[2021-11-25] MEDS: CRANBERRY FRUIT EXTRACT 200 MG PO SCH (15:39)
[2021-11-25] MEDS: Furosemide 40 MG TABLET PO SCH ×2 (15:39→16:32)
[2021-11-25] MEDS: Insulin DETEMIR 100 UNIT/ML X5UNITS SUBQ SCH (20:15)
[2021-11-26] MEDS: Sucralfate 1 GM TABLET PO SCH ×4 (05:51→20:20)
[2021-11-26] MEDS: *HR* HYDROcodone/Acet 5/325 mg TABLET PO PRN ×3 (05:54→22:31)
[2021-11-26] MEDS: Insulin LISPRO 300 UNITS/3 ML VIAL SUBQ SCH ×4 (08:03→19:56)
[2021-11-26] MEDS: Loratadine 10 MG TABLET PO SCH (08:06)
[2021-11-26] MEDS: Aspirin Enteric Coated 81 MG Tablet PO SCH (08:06)
[2021-11-26] MEDS: Metoprolol XL (24 HR) Succ 25 MG TAB.ER.24H PO SCH (08:06)
[2021-11-26] MEDS: Gabapentin 300 MG CAPSULE PO SCH ×3 (08:06→19:55)
[2021-11-26] MEDS: cephALEXin 500 MG CAPSULE PO SCH (08:06)
[2021-11-26] MEDS: Magnesium Oxide 400 MG TABLET PO SCH (08:06)
[2021-11-26] MEDS: Zinc Sulfate 220 MG CAPSULE PO SCH (08:07)
[2021-11-26] MEDS: PARoxetine 10 MG TABLET PO SCH (08:07)
[2021-11-26] MEDS: Cyanocobalamin (B-12) 1,000 MCG TABLET PO SCH (08:08)
[2021-11-26] MEDS: Furosemide 40 MG TABLET PO SCH ×2 (08:08→16:37)
[2021-11-26] MEDS: *HR* Amiodarone 200 MG TABLET PO SCH (08:08)
[2021-11-26] MEDS: Pyridoxine (B-6) 50 MG TABLET PO SCH (08:08)
[2021-11-26] MEDS: amLODIPine 5 MG TABLET PO SCH (08:08)
[2021-11-26] MEDS: CRANBERRY FRUIT EXTRACT 200 MG PO SCH (09:59)
[2021-11-26] MEDS: Insulin DETEMIR 100 UNIT/ML X5UNITS SUBQ SCH (19:55)
[2021-11-27] MEDS: *HR* Enoxaparin 40 MG/0.4 ML SYRINGE SQ SCH (05:23)
[2021-11-27] MEDS: *HR* HYDROcodone/Acet 5/325 mg TABLET PO PRN ×3 (05:23→18:40)
[2021-11-27] MEDS: Sucralfate 1 GM TABLET PO SCH ×4 (05:23→20:22)
[2021-11-27 06:12] LABS: Basophils % 0.6 %; Eosinophils # 0.2 K/mcL (0.0-0.6); Hematocrit 27.2 % (35.3-44.9); Hemoglobin 8.3 g/dL (11.5-15.4); Immature Granulocytes % 0.2 % (0-4); Lymphocytes # 1.8 K/mcL (0.6-4.6); Lymphocytes % 28.8 %; Mean Corpuscular HGB Conc 30.5 g/dL (31.6-35.5); Mean Corpuscular Hemoglobin 27.9 pg (28.0-33.3); Mean Corpuscular Volume 91.6 fL (83.0-100.0); Mean Platelet Volume 9.6 fL (9.4-12.4); Monocytes # 0.8 K/mcL (0.0-1.3); Monocytes % 11.9 %; Neutrophils # 3.5 K/mcL (1.6-8.9); Platelet Count 198 K/mcL (140-400); Red Blood Count 2.97 M/mcL (3.82-4.97); Red Cell Distribution Width 20.5 % (11.5-14.5); Segmented Neutrophils % 55.5 %; White Blood Count 6.3 K/mcL (4.3-11.1)
[2021-11-27 07:58] LABS: Calcium 8.4 mg/dL (8.6-10.3); Potassium 3.7 mEq/L (3.5-5.1)
[2021-11-27] MEDS: Insulin LISPRO 300 UNITS/3 ML VIAL SUBQ SCH ×4 (08:17→20:23)
[2021-11-27] MEDS: Cholecalciferol (D-3) 1,000 UNIT (25MCG) TABLET PO SCH (08:18)
[2021-11-27] MEDS: Furosemide 40 MG TABLET PO SCH ×2 (08:18→16:51)
[2021-11-27] MEDS: amLODIPine 5 MG TABLET PO SCH (08:18)
[2021-11-27] MEDS: PARoxetine 10 MG TABLET PO SCH (08:18)
[2021-11-27] MEDS: Magnesium Oxide 400 MG TABLET PO SCH (08:19)
[2021-11-27] MEDS: Zinc Sulfate 220 MG CAPSULE PO SCH (08:19)
[2021-11-27] MEDS: Gabapentin 300 MG CAPSULE PO SCH ×3 (08:19→20:22)
[2021-11-27] MEDS: Cyanocobalamin (B-12) 1,000 MCG TABLET PO SCH (08:19)
[2021-11-27] MEDS: Pyridoxine (B-6) 50 MG TABLET PO SCH (08:19)
[2021-11-27] MEDS: *HR* Amiodarone 200 MG TABLET PO SCH (08:20)
[2021-11-27] MEDS: Metoprolol XL (24 HR) Succ 25 MG TAB.ER.24H PO SCH (08:20)
[2021-11-27] MEDS: Loratadine 10 MG TABLET PO SCH (08:20)
[2021-11-27] MEDS: Aspirin Enteric Coated 81 MG Tablet PO SCH (08:20)
[2021-11-27] MEDS ORDERED: MOM Conc 10 ML UD.LIQ PO PRN (11:28)
[2021-11-27] MEDS ORDERED: MOM Conc 10 ML UD.LIQ PO ONE (11:28)
[2021-11-27] MEDS: CRANBERRY FRUIT EXTRACT 200 MG PO SCH (12:45)
[2021-11-27] MEDS: Sennosides/Docusate Sodium TABLET PO SCH ×2 (14:07→20:22)
[2021-11-27] MEDS: Insulin DETEMIR 100 UNIT/ML X5UNITS SUBQ SCH (20:21)
[2021-11-27] MEDS: Melatonin 3 MG TABLET PO PRN (20:22)
[2021-11-28] MEDS: *HR* Enoxaparin 40 MG/0.4 ML SYRINGE SQ SCH (04:19)
[2021-11-28] MEDS: Sucralfate 1 GM TABLET PO SCH ×4 (04:20→20:37)
[2021-11-28] MEDS: *HR* HYDROcodone/Acet 5/325 mg TABLET PO PRN ×3 (04:20→20:37)
[2021-11-28] MEDS: Zinc Sulfate 220 MG CAPSULE PO SCH (07:45)
[2021-11-28] MEDS: Furosemide 40 MG TABLET PO SCH ×2 (07:45→16:31)
[2021-11-28] MEDS: Cholecalciferol (D-3) 1,000 UNIT (25MCG) TABLET PO SCH (07:45)
[2021-11-28] MEDS: Pyridoxine (B-6) 50 MG TABLET PO SCH (07:45)
[2021-11-28] MEDS: PARoxetine 10 MG TABLET PO SCH (07:46)
[2021-11-28] MEDS: Metoprolol XL (24 HR) Succ 25 MG TAB.ER.24H PO SCH (07:46)
[2021-11-28] MEDS: Gabapentin 300 MG CAPSULE PO SCH ×3 (07:46→20:36)
[2021-11-28] MEDS: Aspirin Enteric Coated 81 MG Tablet PO SCH (07:46)
[2021-11-28] MEDS: amLODIPine 5 MG TABLET PO SCH (07:46)
[2021-11-28] MEDS: *HR* Amiodarone 200 MG TABLET PO SCH (07:47)
[2021-11-28] MEDS: Sennosides/Docusate Sodium TABLET PO SCH ×2 (07:47→20:37)
[2021-11-28] MEDS: CRANBERRY FRUIT EXTRACT 200 MG PO SCH (07:47)
[2021-11-28] MEDS: Magnesium Oxide 400 MG TABLET PO SCH (07:47)
[2021-11-28] MEDS: polyethylene glycoL 3350 17 GM POWD.PACK PO SCH (07:47)
[2021-11-28] MEDS: Cyanocobalamin (B-12) 1,000 MCG TABLET PO SCH (07:47)
[2021-11-28] MEDS: Loratadine 10 MG TABLET PO SCH (07:47)
[2021-11-28] MEDS: Insulin LISPRO 300 UNITS/3 ML VIAL SUBQ SCH ×4 (07:48→20:38)
[2021-11-28] MEDS: Melatonin 3 MG TABLET PO PRN (20:37)
[2021-11-28] MEDS: Insulin DETEMIR 100 UNIT/ML X5UNITS SUBQ SCH (20:37)
[2021-11-29] MEDS: *HR* HYDROcodone/Acet 5/325 mg TABLET PO PRN ×2 (05:52→19:57)
[2021-11-29] MEDS: *HR* Enoxaparin 40 MG/0.4 ML SYRINGE SQ SCH (05:53)
[2021-11-29] MEDS: Pyridoxine (B-6) 50 MG TABLET PO SCH (07:48)
[2021-11-29] MEDS: Metoprolol XL (24 HR) Succ 25 MG TAB.ER.24H PO SCH (07:48)
[2021-11-29] MEDS: Zinc Sulfate 220 MG CAPSULE PO SCH (07:48)
[2021-11-29] MEDS: Cyanocobalamin (B-12) 1,000 MCG TABLET PO SCH (07:48)
[2021-11-29] MEDS: Sucralfate 1 GM TABLET PO SCH ×4 (07:48→20:06)
[2021-11-29] MEDS: Aspirin Enteric Coated 81 MG Tablet PO SCH (07:48)
[2021-11-29] MEDS: Furosemide 40 MG TABLET PO SCH ×2 (07:49→16:53)
[2021-11-29] MEDS: amLODIPine 5 MG TABLET PO SCH (07:49)
[2021-11-29] MEDS: Cholecalciferol (D-3) 1,000 UNIT (25MCG) TABLET PO SCH (07:49)
[2021-11-29] MEDS: Gabapentin 300 MG CAPSULE PO SCH ×3 (07:49→19:57)
[2021-11-29] MEDS: Magnesium Oxide 400 MG TABLET PO SCH (07:49)
[2021-11-29] MEDS: Sennosides/Docusate Sodium TABLET PO SCH ×2 (07:49→19:58)
[2021-11-29] MEDS: *HR* Amiodarone 200 MG TABLET PO SCH (07:50)
[2021-11-29] MEDS: Loratadine 10 MG TABLET PO SCH (07:50)
[2021-11-29] MEDS: PARoxetine 10 MG TABLET PO SCH (07:50)
[2021-11-29] MEDS: CRANBERRY FRUIT EXTRACT 200 MG PO SCH (07:50)
[2021-11-29] MEDS: polyethylene glycoL 3350 17 GM POWD.PACK PO SCH (07:50)
[2021-11-29] MEDS: Insulin LISPRO 300 UNITS/3 ML VIAL SUBQ SCH ×4 (07:51→19:56)
[2021-11-29] MEDS: Melatonin 3 MG TABLET PO PRN (19:58)
[2021-11-29] MEDS: Insulin DETEMIR 100 UNIT/ML X5UNITS SUBQ SCH (19:58)
[2021-11-30] MEDS: Sucralfate 1 GM TABLET PO SCH ×4 (04:59→20:10)
[2021-11-30] MEDS: *HR* Enoxaparin 40 MG/0.4 ML SYRINGE SQ SCH (05:00)
[2021-11-30] MEDS: Furosemide 40 MG TABLET PO SCH ×2 (08:03→16:37)
[2021-11-30] MEDS: amLODIPine 5 MG TABLET PO SCH (08:04)
[2021-11-30] MEDS: PARoxetine 10 MG TABLET PO SCH (08:06)
[2021-11-30] MEDS: Pyridoxine (B-6) 50 MG TABLET PO SCH (08:06)
[2021-11-30] MEDS: Cyanocobalamin (B-12) 1,000 MCG TABLET PO SCH (08:07)
[2021-11-30] MEDS: Cholecalciferol (D-3) 1,000 UNIT (25MCG) TABLET PO SCH (08:07)
[2021-11-30] MEDS: Gabapentin 300 MG CAPSULE PO SCH ×3 (08:07→20:10)
[2021-11-30] MEDS: Magnesium Oxide 400 MG TABLET PO SCH (08:07)
[2021-11-30] MEDS: *HR* Amiodarone 200 MG TABLET PO SCH (08:07)
[2021-11-30] MEDS: Sennosides/Docusate Sodium TABLET PO SCH ×2 (08:08→20:11)
[2021-11-30] MEDS: Aspirin Enteric Coated 81 MG Tablet PO SCH (08:08)
[2021-11-30] MEDS: Loratadine 10 MG TABLET PO SCH (08:08)
[2021-11-30] MEDS: Metoprolol XL (24 HR) Succ 25 MG TAB.ER.24H PO SCH (08:09)
[2021-11-30] MEDS: Zinc Sulfate 220 MG CAPSULE PO SCH (08:09)
[2021-11-30] MEDS: polyethylene glycoL 3350 17 GM POWD.PACK PO SCH (08:14)
[2021-11-30] MEDS: CRANBERRY FRUIT EXTRACT 200 MG PO SCH (08:14)
[2021-11-30] MEDS: Insulin LISPRO 300 UNITS/3 ML VIAL SUBQ SCH ×4 (08:16→20:11)
[2021-11-30] MEDS: Insulin DETEMIR 100 UNIT/ML X5UNITS SUBQ SCH (20:08)
[2021-11-30] MEDS: *HR* HYDROcodone/Acet 5/325 mg TABLET PO PRN (20:09)
[2021-12-01 04:59] LABS: Hematocrit 27.8 % (35.3-44.9); Hemoglobin 8.5 g/dL (11.5-15.4); Mean Corpuscular HGB Conc 30.6 g/dL (31.6-35.5); Mean Corpuscular Hemoglobin 28.1 pg (28.0-33.3); Mean Corpuscular Volume 92.1 fL (83.0-100.0); Platelet Count 220 K/mcL (140-400); Red Blood Count 3.02 M/mcL (3.82-4.97); Red Cell Distribution Width 21.2 % (11.5-14.5); White Blood Count 5.8 K/mcL (4.3-11.1)
[2021-12-01 05:19] LABS: Alanine Aminotransferase 16 Units/L (7-52); Albumin 2.7 g/dL (3.5-5.7); Albumin/Globulin Ratio 0.8 (1.1-2.2); Alkaline Phosphatase 175 Units/L (34-104); Aspartate Amino Transferase 23 Units/L (13-39); BUN/Creatinine Ratio 30 (6-26); Blood Urea Nitrogen 31 mg/dL (8-23); Calcium 8.8 mg/dL (8.6-10.3); Carbon Dioxide 33 mEq/L (23-29); Chloride 103 mEq/L (98-107); Globulin 3.3 g/dL (2.4-3.5); Glucose 150 mg/dL (70-105); Magnesium 1.6 mg/dL (1.6-2.6); Osmolality,Calculated 301 (280-300); Potassium 3.5 mEq/L (3.5-5.1); Sodium 141 mEq/L (136-145); eGFR For African Americans > 60 (> 60); eGFR For Non-African Americans 52 (> 60)
[2021-12-01] MEDS: *HR* Enoxaparin 40 MG/0.4 ML SYRINGE SQ SCH (05:49)
[2021-12-01] MEDS: Sucralfate 1 GM TABLET PO SCH ×4 (05:49→19:59)
[2021-12-01] MEDS: Cyanocobalamin (B-12) 1,000 MCG TABLET PO SCH (08:06)
[2021-12-01] MEDS: Pyridoxine (B-6) 50 MG TABLET PO SCH (08:06)
[2021-12-01] MEDS: Zinc Sulfate 220 MG CAPSULE PO SCH (08:06)
[2021-12-01] MEDS: Aspirin Enteric Coated 81 MG Tablet PO SCH (08:07)
[2021-12-01] MEDS: Loratadine 10 MG TABLET PO SCH (08:07)
[2021-12-01] MEDS: Magnesium Oxide 400 MG TABLET PO SCH (08:07)
[2021-12-01] MEDS: Metoprolol XL (24 HR) Succ 25 MG TAB.ER.24H PO SCH (08:07)
[2021-12-01] MEDS: Gabapentin 300 MG CAPSULE PO SCH ×3 (08:07→19:58)
[2021-12-01] MEDS: Cholecalciferol (D-3) 1,000 UNIT (25MCG) TABLET PO SCH (08:08)
[2021-12-01] MEDS: amLODIPine 5 MG TABLET PO SCH (08:09)
[2021-12-01] MEDS: PARoxetine 10 MG TABLET PO SCH (08:09)
[2021-12-01] MEDS: *HR* Amiodarone 200 MG TABLET PO SCH (08:09)
[2021-12-01] MEDS: Furosemide 40 MG TABLET PO SCH ×2 (08:09→17:06)
[2021-12-01] MEDS: *HR* HYDROcodone/Acet 5/325 mg TABLET PO PRN ×2 (08:10→19:59)
[2021-12-01] MEDS: Insulin LISPRO 300 UNITS/3 ML VIAL SUBQ SCH ×4 (08:18→20:01)
[2021-12-01] MEDS: Sennosides/Docusate Sodium TABLET PO SCH ×2 (09:53→20:00)
[2021-12-01] MEDS: polyethylene glycoL 3350 17 GM POWD.PACK PO SCH (09:53)
[2021-12-01] MEDS: CRANBERRY FRUIT EXTRACT 200 MG PO SCH (09:53)
[2021-12-01] MEDS: Melatonin 3 MG TABLET PO PRN (19:58)
[2021-12-01] MEDS: Insulin DETEMIR 100 UNIT/ML X5UNITS SUBQ SCH (20:01)
[2021-12-02] MEDS: Sucralfate 1 GM TABLET PO SCH ×4 (04:19→20:42)
[2021-12-02] MEDS: *HR* Enoxaparin 40 MG/0.4 ML SYRINGE SQ SCH (04:19)
[2021-12-02] MEDS: Metoprolol XL (24 HR) Succ 25 MG TAB.ER.24H PO SCH (07:59)
[2021-12-02] MEDS: PARoxetine 10 MG TABLET PO SCH (07:59)
[2021-12-02] MEDS: Cyanocobalamin (B-12) 1,000 MCG TABLET PO SCH (08:00)
[2021-12-02] MEDS: Loratadine 10 MG TABLET PO SCH (08:00)
[2021-12-02] MEDS: Furosemide 40 MG TABLET PO SCH ×2 (08:00→15:58)
[2021-12-02] MEDS: Aspirin Enteric Coated 81 MG Tablet PO SCH (08:00)
[2021-12-02] MEDS: Pyridoxine (B-6) 50 MG TABLET PO SCH (08:00)
[2021-12-02] MEDS: Gabapentin 300 MG CAPSULE PO SCH ×3 (08:01→20:41)
[2021-12-02] MEDS: Magnesium Oxide 400 MG TABLET PO SCH (08:01)
[2021-12-02] MEDS: *HR* HYDROcodone/Acet 5/325 mg TABLET PO PRN ×2 (08:01→20:41)
[2021-12-02] MEDS: Zinc Sulfate 220 MG CAPSULE PO SCH (08:01)
[2021-12-02] MEDS: Cholecalciferol (D-3) 1,000 UNIT (25MCG) TABLET PO SCH (08:01)
[2021-12-02] MEDS: *HR* Amiodarone 200 MG TABLET PO SCH (08:01)
[2021-12-02] MEDS: amLODIPine 5 MG TABLET PO SCH (08:02)
[2021-12-02] MEDS: Insulin LISPRO 300 UNITS/3 ML VIAL SUBQ SCH ×4 (08:06→20:42)
[2021-12-02] MEDS: CRANBERRY FRUIT EXTRACT 200 MG PO SCH (08:08)
[2021-12-02] MEDS: polyethylene glycoL 3350 17 GM POWD.PACK PO SCH (08:08)
[2021-12-02] MEDS: Sennosides/Docusate Sodium TABLET PO SCH ×2 (08:08→20:41)
[2021-12-02] MEDS: Melatonin 3 MG TABLET PO PRN (20:41)
[2021-12-02] MEDS: Insulin DETEMIR 100 UNIT/ML X5UNITS SUBQ SCH (20:48)
[2021-12-03] MEDS: *HR* Enoxaparin 40 MG/0.4 ML SYRINGE SQ SCH (06:08)
[2021-12-03] MEDS: Sucralfate 1 GM TABLET PO SCH ×4 (06:08→19:53)
[2021-12-03] MEDS: polyethylene glycoL 3350 17 GM POWD.PACK PO SCH (07:49)
[2021-12-03] MEDS: CRANBERRY FRUIT EXTRACT 200 MG PO SCH (07:49)
[2021-12-03] MEDS: Insulin LISPRO 300 UNITS/3 ML VIAL SUBQ SCH ×4 (07:50→19:51)
[2021-12-03] MEDS: Gabapentin 300 MG CAPSULE PO SCH ×3 (07:51→19:53)
[2021-12-03] MEDS: Magnesium Oxide 400 MG TABLET PO SCH (07:51)
[2021-12-03] MEDS: Aspirin Enteric Coated 81 MG Tablet PO SCH (07:51)
[2021-12-03] MEDS: Sennosides/Docusate Sodium TABLET PO SCH ×2 (07:51→18:22)
[2021-12-03] MEDS: Cholecalciferol (D-3) 1,000 UNIT (25MCG) TABLET PO SCH (07:51)
[2021-12-03] MEDS: Cyanocobalamin (B-12) 1,000 MCG TABLET PO SCH (07:51)
[2021-12-03] MEDS: Metoprolol XL (24 HR) Succ 25 MG TAB.ER.24H PO SCH (07:51)
[2021-12-03] MEDS: amLODIPine 5 MG TABLET PO SCH (07:51)
[2021-12-03] MEDS: Furosemide 40 MG TABLET PO SCH ×2 (07:51→17:25)
[2021-12-03] MEDS: Zinc Sulfate 220 MG CAPSULE PO SCH (07:51)
[2021-12-03] MEDS: Pyridoxine (B-6) 50 MG TABLET PO SCH (07:52)
[2021-12-03] MEDS: PARoxetine 10 MG TABLET PO SCH (07:52)
[2021-12-03] MEDS: *HR* Amiodarone 200 MG TABLET PO SCH (07:52)
[2021-12-03] MEDS: Loratadine 10 MG TABLET PO SCH (07:52)
[2021-12-03] MEDS: *HR* HYDROcodone/Acet 5/325 mg TABLET PO PRN ×2 (11:30→19:53)
[2021-12-03] MEDS: Insulin DETEMIR 100 UNIT/ML X5UNITS SUBQ SCH (19:52)
[2021-12-03] MEDS: Melatonin 3 MG TABLET PO PRN (19:54)
[2021-12-04 05:53] LABS: Basophils % 0.6 %; Eosinophils # 0.2 K/mcL (0.0-0.6); Hematocrit 28.6 % (35.3-44.9); Hemoglobin 8.7 g/dL (11.5-15.4); Immature Granulocytes % 0.4 % (0-4); Lymphocytes # 1.4 K/mcL (0.6-4.6); Lymphocytes % 28.2 %; Mean Corpuscular HGB Conc 30.4 g/dL (31.6-35.5); Mean Corpuscular Hemoglobin 28.3 pg (28.0-33.3); Mean Corpuscular Volume 93.2 fL (83.0-100.0); Mean Platelet Volume 10.1 fL (9.4-12.4); Monocytes # 0.6 K/mcL (0.0-1.3); Neutrophils # 2.8 K/mcL (1.6-8.9); Platelet Count 217 K/mcL (140-400); Red Blood Count 3.07 M/mcL (3.82-4.97); Red Cell Distribution Width 20.6 % (11.5-14.5); Segmented Neutrophils % 56.8 %
[2021-12-04 06:14] LABS: Calcium 8.8 mg/dL (8.6-10.3); Potassium 3.6 mEq/L (3.5-5.1)
[2021-12-04] MEDS: *HR* Enoxaparin 40 MG/0.4 ML SYRINGE SQ SCH (06:30)
[2021-12-04] MEDS: Sucralfate 1 GM TABLET PO SCH ×2 (06:30→12:06)
[2021-12-04 06:39] VITALS: BP 139/63; PULSE 56; RESP 17; TEMP 97.8; O2SAT 93
[2021-12-04] MEDS: Insulin LISPRO 300 UNITS/3 ML VIAL SUBQ SCH ×2 (07:55→12:07)
[2021-12-04] MEDS: Sennosides/Docusate Sodium TABLET PO SCH (07:55)
[2021-12-04] MEDS: CRANBERRY FRUIT EXTRACT 200 MG PO SCH (07:55)
[2021-12-04] MEDS: Pyridoxine (B-6) 50 MG TABLET PO SCH (07:56)
[2021-12-04] MEDS: Zinc Sulfate 220 MG CAPSULE PO SCH (07:56)
[2021-12-04] MEDS: Magnesium Oxide 400 MG TABLET PO SCH (07:56)
[2021-12-04] MEDS: Gabapentin 300 MG CAPSULE PO SCH (07:56)
[2021-12-04] MEDS: amLODIPine 5 MG TABLET PO SCH (07:56)
[2021-12-04] MEDS: Aspirin Enteric Coated 81 MG Tablet PO SCH (07:56)
[2021-12-04] MEDS: Cholecalciferol (D-3) 1,000 UNIT (25MCG) TABLET PO SCH (07:56)
[2021-12-04] MEDS: Cyanocobalamin (B-12) 1,000 MCG TABLET PO SCH (07:57)
[2021-12-04] MEDS: PARoxetine 10 MG TABLET PO SCH (07:57)
[2021-12-04] MEDS: Loratadine 10 MG TABLET PO SCH (07:57)
[2021-12-04] MEDS: *HR* HYDROcodone/Acet 5/325 mg TABLET PO PRN (07:57)
[2021-12-04] MEDS: Metoprolol XL (24 HR) Succ 25 MG TAB.ER.24H PO SCH (07:57)
[2021-12-04] MEDS: Furosemide 40 MG TABLET PO SCH (07:57)
[2021-12-04] MEDS: *HR* Amiodarone 200 MG TABLET PO SCH (07:57)
[2021-12-04] MEDS: polyethylene glycoL 3350 17 GM POWD.PACK PO SCH (07:58)
== END 2021-12-04 15:18 | disposition home health service (06) | DRG 560 ==
LOC: INPGRE 18:12
PROVIDERS: ADMIT Internal Medicine; ATTEND Internal Medicine